=== PATIENT | male | born 1965 | race Caucasian/White ===

== ENCOUNTER → 2020-07-30 | Outpatient (CLI) | payer OTHER ==
[~2020-07-30] MED LIST: FUERA DE FORMULARIO PO; POM (MEDICAMENTO EN PISO) PO; Singulair 10MG PO
== END | disposition home or self-care (01) ==
LOC: OFIC 805 14:00
PROVIDERS: ATTEND Otolaryngology Otology & Neurotology
DX: H92.01 Otalgia, right ear (principal); H60.391 Other infective otitis externa, right ear